=== PATIENT | male | born 1945 | race Caucasian/White ===

== ENCOUNTER → 2020-06-05 | Outpatient (CLI) | payer OTHER ==
[~2020-06-05] MED LIST: CALCIUM 600 +1 EAC1 PO; CARBIDOPA-LEVO1 EAC3 PO; DETROL2 M1 PO; DIAZEPAM 2MG TAB2 MG PO; FOSAMAX 70 MG T70 MG PO; IMURAN 50MG TAB50 M1 PO; MAGOX 400400 MG PO; MULTIVITAMINS1 EAC7 PO; TAMBOCOR 50 MG50 MG PO
== END ==
LOC: HYPER 08:27
PROVIDERS: ATTEND Emergency Medicine Emergency Medical Services
DX: L89.623 Pressure ulcer of left heel, stage 3 (principal); L89.892 Pressure ulcer of other site, stage 2; S90.822A Blister (nonthermal), left foot, initial encounter; G70.00 Myasthenia gravis without (acute) exacerbation; G25.81 Restless legs syndrome; I95.1 Orthostatic hypotension; I42.0 Dilated cardiomyopathy; E03.9 Hypothyroidism, unspecified; M85.80 Other specified disorders of bone density and structure, unspecified site; G93.89 Other specified disorders of brain; X58.XXXA Exposure to other specified factors, initial encounter; Y93.89 Activity, other specified; Y92.89 Other specified places as the place of occurrence of the external cause; Y99.8 Other external cause status

== ENCOUNTER → 2020-06-11 | Outpatient (CLI) | payer OTHER | LOC: SJCVCIMAG 12:43 | PROVIDERS: ATTEND Emergency Medicine Emergency Medical Services | DX: L97.429 Non-pressure chronic ulcer of left heel and midfoot with unspecified severity (principal); I73.9 Peripheral vascular disease, unspecified ==

== ENCOUNTER → 2020-06-12 | Outpatient (CLI) | payer OTHER | LOC: HYPER 09:28 | PROVIDERS: ATTEND Specialist | DX: L89.623 Pressure ulcer of left heel, stage 3 (principal); G70.00 Myasthenia gravis without (acute) exacerbation; G25.81 Restless legs syndrome; I95.1 Orthostatic hypotension; I42.0 Dilated cardiomyopathy; E03.9 Hypothyroidism, unspecified; M85.80 Other specified disorders of bone density and structure, unspecified site; G93.89 Other specified disorders of brain; H54.8 Legal blindness, as defined in USA ==

== ENCOUNTER → 2020-06-22 | Outpatient (CLI) | payer OTHER | LOC: HYPER 10:43 | PROVIDERS: ATTEND Emergency Medicine | DX: L89.623 Pressure ulcer of left heel, stage 3 (principal); L89.892 Pressure ulcer of other site, stage 2; G70.00 Myasthenia gravis without (acute) exacerbation; G25.81 Restless legs syndrome; I95.1 Orthostatic hypotension; I42.0 Dilated cardiomyopathy; E03.9 Hypothyroidism, unspecified; M85.80 Other specified disorders of bone density and structure, unspecified site; G93.89 Other specified disorders of brain; H54.8 Legal blindness, as defined in USA; G62.9 Polyneuropathy, unspecified ==

== ENCOUNTER → 2020-07-06 | Outpatient (CLI) | payer OTHER | LOC: HYPER 10:53 | PROVIDERS: ATTEND Emergency Medicine | DX: L89.623 Pressure ulcer of left heel, stage 3 (principal); G70.00 Myasthenia gravis without (acute) exacerbation; L84 Corns and callosities; G25.81 Restless legs syndrome; I95.1 Orthostatic hypotension; I42.0 Dilated cardiomyopathy; E03.9 Hypothyroidism, unspecified; M85.80 Other specified disorders of bone density and structure, unspecified site; G93.89 Other specified disorders of brain ==

== ENCOUNTER → 2020-07-30 | Outpatient (CLI) | payer OTHER | LOC: HYPER 13:42 | PROVIDERS: ATTEND Emergency Medicine | DX: L89.623 Pressure ulcer of left heel, stage 3 (principal); G70.00 Myasthenia gravis without (acute) exacerbation; L84 Corns and callosities; G25.81 Restless legs syndrome; I95.1 Orthostatic hypotension; I42.0 Dilated cardiomyopathy; E03.9 Hypothyroidism, unspecified; M85.80 Other specified disorders of bone density and structure, unspecified site; G93.89 Other specified disorders of brain ==

== ENCOUNTER → 2020-08-13 | Outpatient (CLI) | payer OTHER | LOC: HYPER 13:44 | PROVIDERS: ATTEND Emergency Medicine | DX: L89.623 Pressure ulcer of left heel, stage 3 (principal); L84 Corns and callosities; G70.00 Myasthenia gravis without (acute) exacerbation; G25.81 Restless legs syndrome; E03.9 Hypothyroidism, unspecified; G93.89 Other specified disorders of brain; I95.1 Orthostatic hypotension; I42.0 Dilated cardiomyopathy; M85.80 Other specified disorders of bone density and structure, unspecified site ==

== ENCOUNTER → 2020-09-03 | Outpatient (CLI) | payer OTHER | LOC: HYPER 08:48 | PROVIDERS: ATTEND Emergency Medicine | DX: L89.623 Pressure ulcer of left heel, stage 3 (principal); L84 Corns and callosities; G70.00 Myasthenia gravis without (acute) exacerbation; G25.81 Restless legs syndrome; G93.89 Other specified disorders of brain; E03.9 Hypothyroidism, unspecified; I95.1 Orthostatic hypotension; I42.0 Dilated cardiomyopathy; M85.80 Other specified disorders of bone density and structure, unspecified site ==

== ENCOUNTER → 2020-09-10 | Outpatient (CLI) | payer OTHER | LOC: HYPER 14:15 | PROVIDERS: ATTEND Emergency Medicine | DX: L89.623 Pressure ulcer of left heel, stage 3 (principal); L84 Corns and callosities; G70.00 Myasthenia gravis without (acute) exacerbation; G25.81 Restless legs syndrome; G93.89 Other specified disorders of brain; E03.9 Hypothyroidism, unspecified; I95.1 Orthostatic hypotension; I42.0 Dilated cardiomyopathy; M85.80 Other specified disorders of bone density and structure, unspecified site ==

== ENCOUNTER → 2020-09-24 | Outpatient (CLI) | payer OTHER | LOC: HYPER 12:21 | PROVIDERS: ATTEND Emergency Medicine | DX: L89.623 Pressure ulcer of left heel, stage 3 (principal); L84 Corns and callosities; G70.00 Myasthenia gravis without (acute) exacerbation; G25.81 Restless legs syndrome; G93.89 Other specified disorders of brain; E03.9 Hypothyroidism, unspecified; I95.1 Orthostatic hypotension; I42.0 Dilated cardiomyopathy; M85.80 Other specified disorders of bone density and structure, unspecified site ==

== ENCOUNTER → 2020-10-11 | Outpatient (CLI) | payer OTHER | LOC: HYPER 10-08 13:27 | PROVIDERS: ATTEND Emergency Medicine | DX: L89.623 Pressure ulcer of left heel, stage 3 (principal); L84 Corns and callosities; G70.00 Myasthenia gravis without (acute) exacerbation; G25.81 Restless legs syndrome; G93.89 Other specified disorders of brain; H33 Retinal detachments and breaks; E03.9 Hypothyroidism, unspecified; I95.1 Orthostatic hypotension; I42.0 Dilated cardiomyopathy; M85.80 Other specified disorders of bone density and structure, unspecified site ==

== ENCOUNTER → 2020-10-29 | Outpatient (CLI) | payer OTHER | LOC: HYPER 13:46 | PROVIDERS: ATTEND Emergency Medicine | DX: L89.623 Pressure ulcer of left heel, stage 3 (principal); L84 Corns and callosities; G70.00 Myasthenia gravis without (acute) exacerbation; G25.81 Restless legs syndrome; G93.89 Other specified disorders of brain; H33 Retinal detachments and breaks; E03.9 Hypothyroidism, unspecified; I95.1 Orthostatic hypotension; I42.0 Dilated cardiomyopathy; M85.80 Other specified disorders of bone density and structure, unspecified site ==

== ENCOUNTER → 2020-11-19 | Outpatient (CLI) | payer OTHER | LOC: HYPER 08:49 | PROVIDERS: ATTEND Emergency Medicine | DX: L89.623 Pressure ulcer of left heel, stage 3 (principal); L84 Corns and callosities; G70.00 Myasthenia gravis without (acute) exacerbation; G25.81 Restless legs syndrome; G93.89 Other specified disorders of brain; H33 Retinal detachments and breaks; E03.9 Hypothyroidism, unspecified; I95.1 Orthostatic hypotension; I42.0 Dilated cardiomyopathy; M85.80 Other specified disorders of bone density and structure, unspecified site ==

== ENCOUNTER → 2020-12-17 | Outpatient (CLI) | payer OTHER | LOC: HYPER 13:26 | PROVIDERS: ATTEND Emergency Medicine | DX: L89.623 Pressure ulcer of left heel, stage 3 (principal); L84 Corns and callosities; G70.00 Myasthenia gravis without (acute) exacerbation; G25.81 Restless legs syndrome; G93.89 Other specified disorders of brain; H33 Retinal detachments and breaks; E03.9 Hypothyroidism, unspecified; I95.1 Orthostatic hypotension; I42.0 Dilated cardiomyopathy; M85.80 Other specified disorders of bone density and structure, unspecified site ==

== ENCOUNTER → 2021-01-07 | Outpatient (CLI) | payer OTHER | LOC: HYPER 11:03 | PROVIDERS: ATTEND Emergency Medicine | DX: L89.623 Pressure ulcer of left heel, stage 3 (principal); L84 Corns and callosities; G70.00 Myasthenia gravis without (acute) exacerbation; G25.81 Restless legs syndrome; G93.89 Other specified disorders of brain; H33 Retinal detachments and breaks; E03.9 Hypothyroidism, unspecified; I95.1 Orthostatic hypotension; I42.0 Dilated cardiomyopathy; M85.80 Other specified disorders of bone density and structure, unspecified site ==

== ENCOUNTER → 2021-01-21 | Outpatient (CLI) | payer OTHER | LOC: HYPER 11:14 | PROVIDERS: ATTEND Emergency Medicine | DX: L89.623 Pressure ulcer of left heel, stage 3 (principal); L84 Corns and callosities; G70.00 Myasthenia gravis without (acute) exacerbation; G25.81 Restless legs syndrome; G93.89 Other specified disorders of brain; H33 Retinal detachments and breaks; E03.9 Hypothyroidism, unspecified; I95.1 Orthostatic hypotension; I42.0 Dilated cardiomyopathy; M85.80 Other specified disorders of bone density and structure, unspecified site ==

== ENCOUNTER → 2021-02-18 | Outpatient (CLI) | payer OTHER | LOC: HYPER 12:45 | PROVIDERS: ATTEND Emergency Medicine | DX: L89.623 Pressure ulcer of left heel, stage 3 (principal); L84 Corns and callosities; G70.00 Myasthenia gravis without (acute) exacerbation; G25.81 Restless legs syndrome; G93.89 Other specified disorders of brain; H33 Retinal detachments and breaks; E03.9 Hypothyroidism, unspecified; I95.1 Orthostatic hypotension; I42.0 Dilated cardiomyopathy; M85.80 Other specified disorders of bone density and structure, unspecified site ==

== ENCOUNTER → 2021-03-04 | Outpatient (CLI) | payer OTHER | LOC: HYPER 11:18 | PROVIDERS: ATTEND Emergency Medicine | DX: L89.623 Pressure ulcer of left heel, stage 3 (principal); L84 Corns and callosities; G70.00 Myasthenia gravis without (acute) exacerbation; G25.81 Restless legs syndrome; G93.89 Other specified disorders of brain; H33 Retinal detachments and breaks; E03.9 Hypothyroidism, unspecified; I95.1 Orthostatic hypotension; I42.0 Dilated cardiomyopathy; M85.80 Other specified disorders of bone density and structure, unspecified site ==

== ENCOUNTER → 2021-03-18 | Outpatient (CLI) | payer OTHER | LOC: HYPER 08:20 | PROVIDERS: ATTEND Emergency Medicine | DX: L89.623 Pressure ulcer of left heel, stage 3 (principal); L84 Corns and callosities; G70.00 Myasthenia gravis without (acute) exacerbation; G25.81 Restless legs syndrome; G93.89 Other specified disorders of brain; H33 Retinal detachments and breaks; E03.9 Hypothyroidism, unspecified; I95.1 Orthostatic hypotension; I42.0 Dilated cardiomyopathy; M85.80 Other specified disorders of bone density and structure, unspecified site ==

== ENCOUNTER → 2021-04-01 | Outpatient (CLI) | payer OTHER | LOC: HYPER 07:59 | PROVIDERS: ATTEND Emergency Medicine | DX: L89.623 Pressure ulcer of left heel, stage 3 (principal); L84 Corns and callosities; E03.9 Hypothyroidism, unspecified; M85.80 Other specified disorders of bone density and structure, unspecified site; G70.00 Myasthenia gravis without (acute) exacerbation; G25.81 Restless legs syndrome; H54.8 Legal blindness, as defined in USA; I95.1 Orthostatic hypotension; I42.0 Dilated cardiomyopathy; G93.89 Other specified disorders of brain; H33 Retinal detachments and breaks; Z79.899 Other long term (current) drug therapy ==

== ENCOUNTER → 2021-04-23 | Outpatient (CLI) | payer OTHER | LOC: HYPER 14:05 | PROVIDERS: ATTEND Emergency Medicine | DX: L89.623 Pressure ulcer of left heel, stage 3 (principal); L84 Corns and callosities; E03.9 Hypothyroidism, unspecified; H54.8 Legal blindness, as defined in USA; G70.00 Myasthenia gravis without (acute) exacerbation; G25.81 Restless legs syndrome; G93.89 Other specified disorders of brain; I95.1 Orthostatic hypotension; I42.0 Dilated cardiomyopathy; H33 Retinal detachments and breaks; M85.80 Other specified disorders of bone density and structure, unspecified site ==